=== PATIENT | female | born 1985 | race Caucasian/White ===

== ENCOUNTER 2021-01-20 01:37 | Day surgery (SDC) | payer OTHER, SELFPAY ==
[2021-01-19 17:33] VITALS: BMI 51.0
[2021-01-20] MEDS: ACETAMINOPHEN 500 MG TABLET 1000 MG PO (09:47)
[2021-01-20] MEDS: LACTATED RINGERS 1,000 ML 30 ML IV CONT (09:48)
[2021-01-20 10:00] VITALS: BP 129/82; PULSE 69; RESP 18; TEMP 35.9; O2SAT 100
--- NOTE | 2021-01-20 10:10 | WPDANESEPPF ---
Anes - Initial Pre Proc Eval Procedure: Operation Date: 01/20/21 11:30 Proposed Procedures p D&C Suction and Sharp - Francine Pollock MD Date/Time: 01/20/21 10:10 Surgeon: Francine Pollock MD Pre Op Diagnosis: Missed AB Patient Data Age: 35 Gender: F Height: 5 ft 10 in Weight: 161.2 kg Allergies Allergy/AdvReac Type Severity Reaction Status Date / Time No Known Allergies Allergy Unverified 01/19/21 17:31 Home Medications Medication Instructions Recorded Confirmed Type No Home Medications 01/19/21 01/19/21 History Patient hx anesthesia problems: none Family hx anesthesia problems: none PMF Past Medical History Medical History (Updated 01/20/21 @ 10:14 by Don Garces MD) Morbid obesity Family History Family History (Updated 10/20/11 @ 16:24 by DOCTOR UNKNOWN) Other Cerebrovascular accident Diabetes mellitus Family history of alcoholism Family history of arthritis Social History Social History Smoking status: Never smoker Alcohol intake: never Living arrangements: with family Spiritual care concerns: No Anes - Eval Final PreProcedure Day of Procedure 01/20/21 10:10 Patient weight: morbidly obese Heart: regular rate and rhythm Lungs: clear to auscultation Airway: Mallampati scale class 1 Neurological: alert and oriented Last oral intake: >/= 8 hours ASA classification: III Emergent: no Anesthetic plan: proceed Anesthesia type and monitoring: general GIVS and standard monitoring Informed Consent: The patient's anesthetic plan and its attendant risks and benefits were discussed with the patient/family/POA. Questions were solicited and answers provided to the satisfaction of the patient/family/POA.
--- NOTE | 2021-01-20 11:16 | WPDHPUPDATE1 ---
History and Physical Update Update Date/Time: 01/20/21 11:16 History and Physical has been reviewed, including an updated exam of the patient. There are NO changes in the patient's condition. Risks, benefits, and alternatives have been discussed and questions answered. Patient agrees to proceed with procedure.
[2021-01-20] MEDS: KETOROLAC 15 MG/ML VIAL (*BKC) IV PUSH (11:52)
[2021-01-20 12:01] VITALS: BP 147/72; PULSE 77; RESP 16; O2SAT 98
--- NOTE | 2021-01-20 12:04 | P.OP_ITS ---
Procedure Note - Detailed Date of procedure: 01/20/21 Pre-op diagnosis: Missed AB Post-op diagnosis: same Procedure performed: Suction D&C Description of procedure: The patient was taken the operating room. She has prepped and draped in dorsal lithotomy position after induction of mac anesthesia. A speculum was placed in the vagina. The cervix was grasped with a tenaculum. The cervix was injected at 3 and 9:00 a.m. with 1% lidocaine. The cervix was dilated up to 8 mm using Lloyd dilators. An 8 curved plastic suction curette was then applied to the intrauterine cavity. All of the surfaces in the intrauterine cavity were curettage under VAC. A sharp medium-size curette was then used to curettage all the surfaces to confirmed the removal of all the products conception. When all surfaces for bleed to be clean the curette was r emoved. The suction curette was then reapplied to remove all the debris. The procedure was terminated. The tenaculum was removed. The speculum was removed. The patient tolerated the procedure well. She was taken recovery room in stable condition. Anesthesia: MAC Surgeon: Francine Pollock MD Estimated blood loss (mL): 25 Drains: No Packing: No Pathology: yes Complications: No immediate complications Condition: stable Disposition: PACU Findings: Normal vulva vagina and cervix. The moderate amounts of products conception. 10 cm uterus.
[2021-01-20 12:30] VITALS: BP 139/56; PULSE 74; RESP 16; O2SAT 97
--- NOTE | 2021-01-20 12:31 | SUR.PHASEII ---
1230 DR DAWN SPEAKING WITH PTS SIG. OTHER PER PHONE- ALL QUESTIONS ANSWERED.
[2021-01-20 12:50] VITALS: BP 135/66; PULSE 63; RESP 16
== END 2021-01-20 13:00 | disposition home or self-care (01) ==
PROVIDERS: Visit Provider Obstetrics & Gynecology
PROC: (CPT 59820; principal; 2021-01-20 11:30)
DX: O02.1 Missed abortion (principal)
CPT/HCPCS: 59820; 36415; 85461; 88305; A9270; J1885; J2250; J2405; J2704; J3010; J7120